=== PATIENT | female | born 1960 | race American Indian/Alaskan Native ===

== ENCOUNTER 2016-11-28 20:59 | Emergency (ER) | payer OTHER ==
[2016-11-28 20:59] VITALS: BMI 24.8
[2016-11-28 21:22] VITALS: BP 125/76; PULSE 84; RESP 15; TEMP 98.1; O2SAT 96
--- NOTE | 2016-11-28 21:57 | ED PDOC ---
HPI: Headache Time Seen by Provider: 11/28/16 21:32 Chief Complaint (Nursing): Headache Chief Complaint (Provider): Headache History Per: Patient History/Exam Limitations: no limitations Onset/Duration Of Symptoms: Days (x1 week) Current Symptoms Are (Timing): Still Present Severity: Moderate Preceeding Symptoms: None Associated Symptoms: Other (intermittent dizziness/lightheadedness, intermittent drowsiness) Additional Complaint(s): Sol Lee is a 55 year old female, with a past medical history inclusive of HTN and type II diabetes (medication compliant), who presents to the ED on for the evaluation of a moderate, diffuse headache that she has experienced x1 week. Headache, further described as not worst of life, has been accompanied by intermittent senses of dizziness/lightheadedness, occasional right hand numbness/tingling (mild) as well as some intermittent feelings of drowsiness. Denies chest pain or shortness of breath. PMD: Karen Past Medical History Reviewed: Historical Data, Nursing Documentation, Vital Signs Vital Signs: Last Vital Signs Temp 98.1 F 11/28/16 21:20 Pulse 84 11/28/16 21:20 Resp 15 11/28/16 21:20 BP 125/76 11/28/16 21:20 Pulse Ox 96 11/28/16 21:20 - Medical History PMH: Diabetes (type II), HTN Denies: Hypercholesterolemia - Surgical History Surgical History: No Surg Hx - Family History Family History: States: Unknown Family Hx - Immunization History Hx Tetanus Toxoid Vaccination: No Hx Influenza Vaccination: No Hx Pneumococcal Vaccination: No - Home Medications Home Medications: Ambulatory Orders Medication Instructions Recorded Atorvastatin [Lipitor] 10 mg PO DAILY 08/16/16 Metformin ER [Glucophage XR] 850 mg PO DAILY 08/16/16 Aspirin [Aspirin Chewable] 81 mg PO DAILY 09/17/16 Clindamycin [Cleocin] 300 mg PO TID #30 cap 09/17/16 Amoxicillin/Clavulanate [Augmentin 1 tab PO BID #14 tab 09/28/16 875 MG-125 MG] Clotrimazole/Betamethasone 1 film TOP BID #30 g 09/28/16 [Lotrisone] Meclizine [Antivert] 25 mg PO Q8H PRN #20 tab 09/30/16 Famotidine [Pepcid] 40 mg PO DAILY #10 tab 10/06/16 Ibuprofen [Motrin] 600 mg PO TID PRN #30 tab 10/06/16 Ondansetron [Zofran] 4 mg PO Q8H #8 tab 10/06/16 - Allergies Allergies/Adverse Reactions: Allergies Allergy/AdvReac Type Severity Reaction Status Date / Time No Known Allergies Allergy Verified 09/17/16 13:18 Review of Systems Cardiovascular: Positive for: Light Headedness. Negative for: Chest Pain Respiratory: Negative for: Shortness of Breath Neurological: Positive for: Numbness (occasional, right hand), Headache (diffuse , not worst of life), Dizziness Physical Exam - Reviewed Nursing Documentation Reviewed: Yes Vital Signs Reviewed: Yes - Physical Exam Appears: Positive for: Non-toxic, No Acute Distress Head Exam: Positive for: ATRAUMATIC, NORMOCEPHALIC Skin: Positive for: Normal Color, Warm, Dry Eye Exam: Positive for: Normal appearance, EOMI, PERRL Cardiovascular/Chest: Positive for: Regular Rate, Rhythm. Negative for: Murmur Respiratory: Positive for: Normal Breath Sounds. 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 Negative for: Motor/Sensory Deficits (5/5 x4 extremities, sensation intact), Aphasia, Facial Droop - Laboratory Results Result Diagrams: 11/28/16 21:54 11/28/16 21:54 - ECG O2 Sat by Pulse Oximetry: 96 (RA) Pulse Ox Interpretation: Normal Medical Decision Making Medical Decision Makin:32 Initial Impression: headache, dizziness/lightheadedness Initial Plan: * EKG * CT Head w/o contrast * Labs * Troponin I * PTT * PT * Reevaluation Pt initially states she was lightheaded and did not have a headache. On re- evaluation pt reports headache. Tylenol ordered for pain. Scribe Attestation: Documented by Cely Mercado, acting as a scribe for Julita Conroy PA-C. Provider Scribe Attestation: All medical record entries made by the Scribe were at my direction and personally dictated by me. I have reviewed the chart and agree that the record accurately reflects my personal performance of the history, physical exam, medical decision making, and the department course for this patient. I have also personally directed, reviewed, and agree with the discharge instructions and disposition. Disposition - Clinical Impression Clinical Impression: Headache - Patient ED Disposition Is Patient to be Admitted: No Counseled Patient/Family Regarding: Diagnosis, Need For Followup - Disposition Referrals: Chapito Tijerina MD [Medical Doctor] - Disposition: Routine/Home Disposition Time: 23:58 Condition: GOOD Instructions: Tension Headache (ED)
[2016-11-28 22:20] LABS: BASO # 0.1 K/uL (0.0-0.2); BASO % 2.4 % (0.0-2.0); EOS # 0.1 K/uL (0.0-0.7); EOS % 3.2 % (0.0-4.0); HEMATOCRIT 41.4 % (34.0-47.0); LYMPH # 2.3 K/uL (1.0-4.3); MEAN CELL VOLUME 88.4 fl (81.0-99.0); MEAN CORPUSCULAR HEMOGLOBIN 29.5 pg (27.0-31.0); MEAN CORPUSCULAR HGB CONC 33.3 g/dL (33.0-37.0); MONO # 0.5 K/uL (0.0-0.8); MONO % 10.4 % (0.0-10.0); NEUT # 1.6 K/uL (1.8-7.0); RED CELL DISTRIBUTION WIDTH 13.2 % (11.5-14.5); WHITE BLOOD COUNT 4.6 K/uL (4.8-10.8)
[2016-11-28 22:26] LABS: ALB/GLOB RATIO 1.3 (1.0-2.1); ALKALINE PHOSPHATASE 74 U/L (38-126); ALT/SGPT 63 U/L (9-52); AST/SGOT 47 U/L (14-36); BILIRUBIN,TOTAL 0.6 mg/dl (0.2-1.3); BLOOD UREA NITROGEN 12 mg/dl (7-17); CARBON DIOXIDE 26 mmol/L (22-30); CHLORIDE 100 mmol/L (98-107); GFR AFRICAN-AMERICAN > 60; GLUCOSE,RANDOM 150 mg/dL (65-105); SODIUM 137 mmol/l (132-148); TOTAL PROTEIN 8.1 G/DL (6.3-8.2)
[2016-11-28 22:35] LABS: PARTIAL THROMBOPLASTIN TIME 24.2 SECONDS (23.3-32.5)
--- NOTE | 2016-11-28 22:47 | CT ---
EXAM: CT Head Without Intravenous Contrast. CLINICAL HISTORY: 55 years old, female; Pain; Headache; Headache not specified; Additional info: Lightheadedness, right hand tingling. Sent prior ct head from 12-15-2015 TECHNIQUE: Axial computed tomography images of the head/brain without intravenous contrast. This CT exam was performed using one or more of the following dose reduction techniques: automated exposure control, adjustment of the mA and/or kV according to patient size, and/or use of iterative reconstruction technique. Coronal and sagittal reformatted images were created and reviewed. COMPARISON: CT - HEAD W/O CONTRAST 12/15/2015 10:49:33 AM FINDINGS: Brain: There is no evidence of intracranial hemorrhage. No evidence of acute territorial infarction. No significant white matter disease. No edema. Ventricles: Unremarkable. No ventriculomegaly. Bones/joints: Unremarkable. No acute fracture. Soft tissues: Unremarkable. Sinuses: Unremarkable as visualized. No acute sinusitis. Mastoid air cells: Unremarkable as visualized. No mastoid effusion. There is no significant change from the prior study. IMPRESSION: 1. No evidence for acute intracranial abnormality or displaced calvarial fracture. 2. Additional incidental and/or chronic findings as described.
[2016-11-29] MEDS ORDERED: Acetaminophen-Codeine 300/30 mg Tab PO STA (00:01)
[2016-11-29] MEDS ORDERED: Acetaminophen-Codeine 300/30 mg Tab ONE (00:10)
== END 2016-11-29 00:31 | disposition home or self-care (01) ==
LOC: H.ER 20:59
DX: R51 Headache (principal); E11.9 Type 2 diabetes mellitus without complications; Z79.84 Long term (current) use of oral hypoglycemic drugs; I10 Essential (primary) hypertension

== ENCOUNTER 2016-12-21 18:07 | Emergency (ER) | payer OTHER ==
[2016-12-21 18:08] VITALS: BMI 24.8
[2016-12-21 18:29] VITALS: BP 146/90; RESP 20; TEMP 98.2; O2SAT 99
--- NOTE | 2016-12-21 18:55 | ED PDOC ---
HPI: Headache Time Seen by Provider: 12/21/16 18:40 Chief Complaint (Nursing): Syncope Chief Complaint (Provider): Headache History Per: Patient History/Exam Limitations: no limitations Onset/Duration Of Symptoms: Days Current Symptoms Are (Timing): Better Severity: Mild Preceeding Symptoms: None Additional Complaint(s): Sol Lee is a 56 year old female, with a past medical history inclusive of HTN and type II diabetes (medication complaint, controlled), who presents to the ED on 12/21/16 for the evaluation of a frontal headache that she has experienced intermittently over the past couple of weeks. She also reports some occasional tingling within her right hand but that this has been a chronic issue. Denies focal weakness or dysarthria, and further reports that pain is mild within the ED. Patient was evaluated in the ED for this complaint approximately [address] and labwork but was discharged home with a diagnosis of headache after all studies resulted as normal. Patient also has an acute secondary complaint of intermittent voice hoarseness that she has experienced x6 days. Denies fever, chills, outright throat pain, neck swelling, cough, rhinorrhea, nausea or vomiting. PMD: Karen ([facility]) Past Medical History Reviewed: Historical Data, Nursing Documentation, Vital Signs Vital Signs: Last Vital Signs Temp 98.2 F 12/21/16 18:25 Pulse 72 12/21/16 18:25 Resp 20 12/21/16 18:25 BP 146/90 12/21/16 18:25 Pulse Ox 99 12/21/16 18:25 - Medical History PMH: Diabetes (type II), HTN Denies: Hypercholesterolemia - Surgical History Other surgeries: right breast biopsy - Family History Family History: States: CAD, Diabetes - Social History Current smoker - smoking cessation education provided: No Alcohol: None Drugs: Denies - Immunization History Hx Tetanus Toxoid Vaccination: No Hx Influenza Vaccination: No Hx Pneumococcal Vaccination: No - Home Medications Home Medications: Ambulatory Orders Medication Instructions Recorded Atorvastatin [Lipitor] 10 mg PO DAILY 08/16/16 Metformin ER [Glucophage XR] 850 mg PO DAILY 08/16/16 Aspirin [Aspirin Chewable] 81 mg PO DAILY 09/17/16 Clindamycin [Cleocin] 300 mg PO TID #30 cap 09/17/16 Amoxicillin/Clavulanate [Augmentin 1 tab PO BID #14 tab 09/28/16 875 MG-125 MG] Clotrimazole/Betamethasone 1 film TOP BID #30 g 09/28/16 [Lotrisone] Meclizine [Antivert] 25 mg PO Q8H PRN #20 tab 09/30/16 Famotidine [Pepcid] 40 mg PO DAILY #10 tab 10/06/16 Ibuprofen [Motrin] 600 mg PO TID PRN #30 tab 10/06/16 Ondansetron [Zofran] 4 mg PO Q8H #8 tab 10/06/16 Naproxen [Naprosyn] 1 tab PO BID PRN #30 tab 12/21/16 - Allergies Allergies/Adverse Reactions: Allergies Allergy/AdvReac Type Severity Reaction Status Date / Time No Known Allergies Allergy Verified 09/17/16 13:18 Review of Systems ROS Statement: Except As Marked, All Systems Reviewed And Found Negative Constitutional: Positive for: Weakness (chronic intermittent generalized weakness/fatigue (pt admits to only sleeping 4-5 hrs/night)). Negative for: Fever, Chills ENT: Positive for: Other (voce hoarseness). Negative for: Nose Discharge, Throat Pain Respiratory: Negative for: Cough Gastrointestinal: Negative for: Nausea, Vomiting Musculoskeletal: Negative for: Neck Pain (no swelling) Skin: Positive for: Other ("lump" in middle of breasts (found this week)) Neurological: Positive for: Headache (mild in ED, frontal) Physical Exam - Reviewed Nursing Documentation Reviewed: Yes Vital Signs Reviewed: Yes - Physical Exam Appears: Positive for: Non-toxic, No Acute Distress Head Exam: Positive for: ATRAUMATIC, NORMOCEPHALIC Skin: Positive for: Normal Color, Warm, Dry Eye Exam: Positive for: Normal appearance, PERRL ENT: Positive for: Normal ENT Inspection. Negative for: Pharyngeal Erythema, Tonsillar Exudate, Tonsillar Swelling Neck: Positive for: Normal, Painless ROM, Supple Cardiovascular/Chest: Positive for: Regular Rate, Rhythm, Chest Non Tender (no palpable breast masses). Negative for: Edema (no leg swelling), Murmur Respiratory: Positive for: Normal Breath Sounds. Negative for: Respiratory Distress Gastrointestinal/Abdominal: Positive for: Normal Exam, Soft. Negative for: Tenderness Back: Positive for: Normal Inspection Extremity: Positive for: Normal ROM. Negative for: Swelling Neurologic/Psych: Positive for: Alert, Oriented - Laboratory Results Result Diagrams: 12/21/16 19:05 12/21/16 19:05 - ECG ECG: Positive for: Interpreted By Me, Viewed By Me ECG Rhythm: Positive for: Normal QRS, Normal ST Segment, Sinus Rhythm Rate: 70 O2 Sat by Pulse Oximetry: 99 (RA) Pulse Ox Interpretation: Normal Medical Decision Making Medical Decision Makin:40 Initial Impression: headache, voice hoarseness, occasional generalized weakness Differential diagnoses include but are not limited to migraine, electrolyte abnormality, hypothyroidism. Initial Plan: * EKG * Labs * Alcohol Serum * Magnesium * Phosphorus * TSH * Glucose/Blood/POC * Udip * Urine Drug Screen * Rapid Strep * Reevaluation 10p On reeval pt is sleeping comfortably. No clinically significant lab abnormalities. DW pt findings and plan of care. Scribe Attestation: Documented by Cely Mercado, acting as a scribe for Lisa Love MD. Provider Scribe Attestation: All medical record entries made by the Scribe were at my direction and personally dictated by me. I have reviewed the chart and agree that the record accurately reflects my personal performance of the history, physical exam, medical decision making, and the department course for this patient. I have also personally directed, reviewed, and agree with the discharge instructions and disposition. Disposition - Clinical Impression Clinical Impression: Headache Counseled Patient/Family Regarding: Studies Performed, Diagnosis, Need For Followup, Rx Given - Disposition Referrals: [facility] [Outside] Antonio Cohn MD [Staff Provider] - Disposition: Routine/Home Disposition Time: 22:00 Condition: IMPROVED Additional Instructions: FOLLOW UP WITH DR NEVAREZ FRIDAY AND ALSO TRY TO SEE A NEUROLOGIST BY THE END OF NEXT WEEK WELL. Prescriptions: Naproxen [Naprosyn] 1 tab PO BID PRN #30 tab PRN Reason: Pain Instructions: Acute Headache (ED), Weakness (ED)
[2016-12-21 19:11] VITALS: PULSE 70
[2016-12-21 19:25] LABS: BASO % 0.3 % (0.0-2.0); EOS # 0.2 K/uL (0.0-0.7); EOS % 4.5 % (0.0-4.0); LYMPH # 2.4 K/uL (1.0-4.3); LYMPH % 50.4 % (20.0-40.0); MEAN CELL VOLUME 89.1 fl (81.0-99.0); MEAN CORPUSCULAR HEMOGLOBIN 29.4 pg (27.0-31.0); MEAN PLATELET VOLUME 11.4 fl (7.2-11.7); MONO # 0.5 K/uL (0.0-0.8); MONO % 11.4 % (0.0-10.0); NEUT # 1.6 K/uL (1.8-7.0); NEUT % 33.4 % (50.0-75.0); NRBC % 0.2 % (0.0-0.0); RED CELL DISTRIBUTION WIDTH 13.2 % (11.5-14.5); WHITE BLOOD COUNT 4.7 K/uL (4.8-10.8)
[2016-12-21 19:32] LABS: ALB/GLOB RATIO 1.2 (1.0-2.1); ALCOHOL SERUM < 10 mg/dl (0-10); ALKALINE PHOSPHATASE 82 U/L (38-126); ALT/SGPT 44 U/L (9-52); AST/SGOT 44 U/L (14-36); BILIRUBIN,TOTAL 0.5 mg/dl (0.2-1.3); BLOOD UREA NITROGEN 15 mg/dl (7-17); CALCIUM 10.4 mg/dL (8.4-10.2); CARBON DIOXIDE 27 mmol/L (22-30); CHLORIDE 102 mmol/L (98-107); GFR AFRICAN-AMERICAN > 60; GLUCOSE,RANDOM 127 mg/dL (65-105); MAGNESIUM 1.7 MG/DL (1.6-2.3); PHOSPHOROUS 3.5 mg/dl (2.5-4.5); SODIUM 143 mmol/l (132-148); TOTAL PROTEIN 7.6 G/DL (6.3-8.2)
--- NOTE | 2016-12-22 09:02 | CARD ---
APPROVED REPORT EKG Measurement Heart [id number] <Conclusion> Normal sinus rhythm Normal ECG
== END 2016-12-21 23:44 | disposition home or self-care (01) ==
LOC: H.ER 18:07
DX: R51 Headache (principal); R53.1 Weakness; E11.9 Type 2 diabetes mellitus without complications; I10 Essential (primary) hypertension; Z79.82 Long term (current) use of aspirin; Z79.84 Long term (current) use of oral hypoglycemic drugs; Z82.49 Family history of ischemic heart disease and other diseases of the circulatory system; R55 Syncope and collapse

== ENCOUNTER 2017-01-27 17:14 | Emergency (ER) | payer OTHER ==
[2017-01-27 17:14] VITALS: BMI 24.8
[2017-01-27] MEDS ORDERED: Sodium Chloride 0.9% 1,000 ML IV STA (18:30)
--- NOTE | 2017-01-27 18:31 | ED PDOC ---
HPI: Abdomen Time Seen by Provider: 01/27/17 17:44 Chief Complaint (Nursing): Fever Chief Complaint (Provider): Fever History Per: Patient Additional Complaint(s): 56 yo female, no PMH, presents into ER c/o fever and painful urination since yesterday. states she did not take any meds for fever. No nausea or vomiting. No abdominal pain or back pain Past Medical History Reviewed: Nursing Documentation, Vital Signs Vital Signs: Last Vital Signs Temp 100.8 F H 01/27/17 17:24 Pulse 110 H 01/27/17 17:24 Resp 20 01/27/17 17:24 BP 150/92 H 01/27/17 17:24 Pulse Ox 96 01/27/17 18:31 - Medical History PMH: Diabetes (type II), HTN Denies: Hypercholesterolemia - Family History Family History: States: Unknown Family Hx, CAD, Diabetes - Living Arrangements Living Arrangements: With Family - Social History Current smoker - smoking cessation education provided: No Alcohol: None Drugs: Denies - Immunization History Hx Tetanus Toxoid Vaccination: No Hx Influenza Vaccination: No Hx Pneumococcal Vaccination: No - Home Medications Home Medications: Ambulatory Orders Medication Instructions Recorded Atorvastatin [Lipitor] 10 mg PO DAILY 08/16/16 Metformin ER [Glucophage XR] 850 mg PO DAILY 08/16/16 Aspirin [Aspirin Chewable] 81 mg PO DAILY 09/17/16 Clindamycin [Cleocin] 300 mg PO TID #30 cap 09/17/16 Amoxicillin/Clavulanate [Augmentin 1 tab PO BID #14 tab 09/28/16 875 MG-125 MG] Clotrimazole/Betamethasone 1 film TOP BID #30 g 09/28/16 [Lotrisone] Meclizine [Antivert] 25 mg PO Q8H PRN #20 tab 09/30/16 Famotidine [Pepcid] 40 mg PO DAILY #10 tab 10/06/16 Ibuprofen [Motrin] 600 mg PO TID PRN #30 tab 10/06/16 Ondansetron [Zofran] 4 mg PO Q8H #8 tab 10/06/16 Naproxen [Naprosyn] 1 tab PO BID PRN #30 tab 12/21/16 - Allergies Allergies/Adverse Reactions: Allergies Allergy/AdvReac Type Severity Reaction Status Date / Time No Known Allergies Allergy Verified 01/27/17 17:24 Review of Systems ROS Statement: Except As Marked, All Systems Reviewed And Found Negative Physical Exam - Reviewed Nursing Documentation Reviewed: Yes Vital Signs Reviewed: Yes - Physical Exam Appears: Positive for: Well, Non-toxic, No Acute Distress Head Exam: Positive for: ATRAUMATIC, NORMAL INSPECTION, NORMOCEPHALIC Skin: Positive for: Normal Color, Warm, DRY Eye Exam: Positive for: EOMI, Normal appearance, PERRL ENT: Positive for: Normal ENT Inspection Neck: Positive for: Normal, Painless ROM Cardiovascular/Chest: Positive for: Regular Rate, Rhythm Respiratory: Positive for: CNT, Normal Breath Sounds Gastrointestinal/Abdominal: Positive for: Normal Exam, Bowel Sounds, Soft Back: Positive for: Normal Inspection Extremity: Positive for: Normal ROM Neurologic/Psych: Positive for: Alert, Oriented - Laboratory Results Result Diagrams: 01/27/17 17:35 01/27/17 17:35 - ECG O2 Sat by Pulse Oximetry: 96 Medical Decision Making Medical Decision Making: IV access established and treatment initiated with IVF and Toradol CBC resulted WNL COMP with elevated glucose 224, IVF running UA pending 19:47 Case endorsed to EMILY Rowland at 20:00 pending UA and antibiotics if needed Disposition - Clinical Impression Clinical Impression: Urinary tract infection - Patient ED Disposition Is Patient to be Admitted: No - Disposition Disposition: Transfer of Care ([facility]) Disposition Time: 19:45 Condition: STABLE - POA Present On Arrival: Poor Glycemic Control
[2017-01-27 18:48] LABS: BASO # 0.1 K/uL (0.0-0.2); EOS # 0.1 K/uL (0.0-0.7); LYMPH # 1.2 K/uL (1.0-4.3); LYMPH % 20.3 % (20.0-40.0); MEAN CELL VOLUME 88.6 fl (81.0-99.0); MEAN CORPUSCULAR HEMOGLOBIN 29.6 pg (27.0-31.0); MEAN CORPUSCULAR HGB CONC 33.4 g/dL (33.0-37.0); MEAN PLATELET VOLUME 11.2 fl (7.2-11.7); MONO # 0.6 K/uL (0.0-0.8); MONO % 10.3 % (0.0-10.0); NEUT % 67.4 % (50.0-75.0); NRBC % 0.1 % (0.0-0.0); RED CELL DISTRIBUTION WIDTH 13.3 % (11.5-14.5); WHITE BLOOD COUNT 5.9 K/uL (4.8-10.8)
[2017-01-27 19:01] LABS: ALB/GLOB RATIO 1.3 (1.0-2.1); ALKALINE PHOSPHATASE 84 U/L (38-126); ALT/SGPT 60 U/L (9-52); AST/SGOT 40 U/L (14-36); BILIRUBIN,TOTAL 0.6 mg/dl (0.2-1.3); BLOOD UREA NITROGEN 9 mg/dl (7-17); CALCIUM 9.8 mg/dL (8.4-10.2); CARBON DIOXIDE 26 mmol/L (22-30); CHLORIDE 99 mmol/L (98-107); GFR AFRICAN-AMERICAN > 60; GLUCOSE,RANDOM 224 mg/dL (65-105); POTASSIUM 3.6 MMOL/L (3.6-5.0); SODIUM 135 mmol/l (132-148); TOTAL PROTEIN 7.7 G/DL (6.3-8.2)
[2017-01-27 20:51] LABS: RBC URINE 15 /hpf (0-3); URINE BACTERIA RARE (<OCC); URINE BILIRUBIN NEGATIVE (NEGATIVE); URINE BLOOD SMALL (NEGATIVE); URINE COLOR YELLOW (YELLOW); URINE GLUCOSE (UA) 150 mg/dL (Normal); URINE KETONE NEGATIVE (NEGATIVE); URINE LEUKOCYTE ESTERASE MOD Leu/uL (Negative); URINE PROTEIN 30 mg/dL (NEGATIVE); URINE UROBILINOGEN 0.2-1.0 mg/dL (0.2-1.0); WBC URINE 25 /hpf (0-5)
[2017-01-27 21:12] VITALS: BP 114/76; PULSE 94; RESP 16; TEMP 98.9; O2SAT 95
--- NOTE | 2017-01-27 21:30 | ED PDOC ---
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 Patient without abdominal, flank, or CVA tenderness. Patient educated on findings, discharged with rx cipro (dose given), ibuprofen. Advised follow up PMD 2-3 days. Return to ED for worsening/concerning symptoms. Disposition - Clinical Impression Clinical Impression: Urinary tract infection - POA Present On Arrival: None - Disposition Disposition: Routine/Home Disposition Time: 21:29 Condition: IMPROVED Prescriptions: Ciprofloxacin HCl [Cipro] 500 mg PO BID #13 tab Ibuprofen [Motrin Tab] 1 tab PO Q6 PRN #20 tab PRN Reason: Fever >100.4 F Instructions: Urinary Tract Infection in Women (ED)
== END 2017-01-27 21:50 | disposition home or self-care (01) ==
LOC: H.ER 17:14
DX: N39.0 Urinary tract infection, site not specified (principal); E11.9 Type 2 diabetes mellitus without complications; I10 Essential (primary) hypertension; Z79.82 Long term (current) use of aspirin; Z79.84 Long term (current) use of oral hypoglycemic drugs

== ENCOUNTER 2017-01-29 19:37 | Emergency (ER) | payer OTHER ==
[2017-01-29 19:37] VITALS: BMI 24.8
[2017-01-29 19:47] VITALS: BP 144/78; PULSE 86; RESP 18; TEMP 99.2; O2SAT 98
--- NOTE | 2017-01-29 20:34 | ED PDOC ---
HPI: General Adult Time Seen by Provider: 01/29/17 19:51 Chief Complaint (Nursing): Flu-like Symptoms History Per: Patient History/Exam Limitations: no limitations Onset/Duration Of Symptoms: Days (X 2) Have you had recent travel within the past 21 days to any of the following countries: [place], [place], [place] or [place]?: No Additional Complaint(s): Sol Lee is a 56 year old female, with no previous medical history, who presents to the ED with complaints of dysuria persisting for the past two days. Patient was seen in the ED 2 days ago and reports symptoms still persisting and reports developing a cough. Patient denies any nausea, vomiting, fever chills. PMD: none provided Past Medical History Reviewed: Historical Data, Nursing Documentation, Vital Signs Vital Signs: Last Vital Signs Temp 99.2 F 01/29/17 19:44 Pulse 86 01/29/17 19:44 Resp 18 01/29/17 19:44 BP 144/78 01/29/17 19:44 Pulse Ox 98 01/29/17 20:35 - Medical History PMH: Diabetes (type II), HTN Denies: Hypercholesterolemia - Family History Family History: States: Unknown Family Hx, CAD, Diabetes - Immunization History Hx Tetanus Toxoid Vaccination: No Hx Influenza Vaccination: No Hx Pneumococcal Vaccination: No - Home Medications Home Medications: Ambulatory Orders Medication Instructions Recorded Atorvastatin [Lipitor] 10 mg PO DAILY 08/16/16 Metformin ER [Glucophage XR] 850 mg PO DAILY 08/16/16 Aspirin [Aspirin Chewable] 81 mg PO DAILY 09/17/16 Clindamycin [Cleocin] 300 mg PO TID #30 cap 09/17/16 Amoxicillin/Clavulanate [Augmentin 1 tab PO BID #14 tab 09/28/16 875 MG-125 MG] Clotrimazole/Betamethasone 1 film TOP BID #30 g 09/28/16 [Lotrisone] Meclizine [Antivert] 25 mg PO Q8H PRN #20 tab 09/30/16 Famotidine [Pepcid] 40 mg PO DAILY #10 tab 10/06/16 Ibuprofen [Motrin] 600 mg PO TID PRN #30 tab 10/06/16 Ondansetron [Zofran] 4 mg PO Q8H #8 tab 10/06/16 Naproxen [Naprosyn] 1 tab PO BID PRN #30 tab 12/21/16 Ciprofloxacin HCl [Cipro] 500 mg PO BID #13 tab 01/27/17 Ibuprofen [Motrin Tab] 1 tab PO Q6 PRN #20 tab 01/27/17 - Allergies Allergies/Adverse Reactions: Allergies Allergy/AdvReac Type Severity Reaction Status Date / Time No Known Allergies Allergy Verified 01/27/17 17:24 Review of Systems ROS Statement: Except As Marked, All Systems Reviewed And Found Negative Constitutional: Negative for: Fever, Chills Respiratory: Positive for: Cough Gastrointestinal: Negative for: Nausea, Vomiting Genitourinary Female: Positive for: Dysuria Physical Exam - Reviewed Nursing Documentation Reviewed: Yes Vital Signs Reviewed: Yes - Physical Exam Appears: Positive for: Well, Non-toxic, No Acute Distress Head Exam: Positive for: ATRAUMATIC, NORMAL INSPECTION, NORMOCEPHALIC Skin: Positive for: Normal Color, Warm, DRY Eye Exam: Positive for: EOMI, Normal appearance, PERRL ENT: Positive for: Normal ENT Inspection Neck: Positive for: Normal, Painless ROM Cardiovascular/Chest: Positive for: Regular Rate, Rhythm Respiratory: Positive for: CNT, Normal Breath Sounds Neurologic/Psych: Positive for: Alert, Oriented - ECG O2 Sat by Pulse Oximetry: 98 (RA) Pulse Ox Interpretation: Normal Medical Decision Making Medical Decision Making: Initial Plan: * urinalysis * urine culture * CXR CXR without acute abnormalities Urine appears improved from previous. Blood cultures from 2 days ago negative. Urine culture <100,000units Scribe Attestation: Documented by Renetta Beach, acting as a scribe for Julita Conroy PA-C. Provider Scribe Attestation: All medical record entries made by the Scribe were at my direction and personally dictated by me. I have reviewed the chart and agree that the record accurately reflects my personal performance of the history, physical exam, medical decision making, and the department course for this patient. I have also personally directed, reviewed, and agree with the discharge instructions and disposition. Disposition - Clinical Impression Clinical Impression: Urinary tract infection - Patient ED Disposition Is Patient to be Admitted: No Counseled Patient/Family Regarding: Diagnosis, Need For Followup - Disposition Referrals: [facility] [Outside] Disposition: Routine/Home Disposition Time: 21:57 Condition: GOOD Additional Instructions: Please follow-up with PMD. Continue Cirpo. Instructions: Urinary Tract Infection in Women (ED)
[2017-01-29 21:06] LABS: RBC URINE 3 /hpf (0-3); URINE BACTERIA RARE (<OCC); URINE BILIRUBIN NEGATIVE (NEGATIVE); URINE BLOOD NEGATIVE (NEGATIVE); URINE COLOR YELLOW (YELLOW); URINE GLUCOSE (UA) >=500 mg/dL (Normal); URINE KETONE NEGATIVE (NEGATIVE); URINE LEUKOCYTE ESTERASE NEG Leu/uL (Negative); URINE PROTEIN 100 mg/dL (NEGATIVE); URINE UROBILINOGEN 0.2-1.0 mg/dL (0.2-1.0); WBC URINE 12 /hpf (0-5)
--- NOTE | 2017-01-30 10:08 | RAD ---
HISTORY: cough COMPARISON: 10/06/2016 TECHNIQUE: Chest PA and lateral FINDINGS: LUNGS: No active pulmonary disease. PLEURA: No significant pleural effusion identified. No pneumothorax apparent. CARDIOVASCULAR: Normal. OSSEOUS STRUCTURES: No significant abnormalities. VISUALIZED UPPER ABDOMEN: Normal. OTHER FINDINGS: None. IMPRESSION: No active disease.
== END 2017-01-29 22:37 | disposition home or self-care (01) ==
LOC: H.ER 19:37
DX: N39.0 Urinary tract infection, site not specified (principal); E11.9 Type 2 diabetes mellitus without complications; I10 Essential (primary) hypertension